=== PATIENT | female | born 1965 | race Caucasian/White ===

== ENCOUNTER → 2017-08-07 | Outpatient (CLI) | payer OTHER ==
--- NOTE | 2017-08-09 07:51 | MM ---
Reason for exam: screening (asymptomatic). Last mammogram was performed 1 year and 3 months ago. History: Family history of breast cancer in maternal aunt at age 40. Benign left breast needle localization of both breasts, October 05, 2010. Cancelled Left Mammotome of the left breast, September 22, 2010. Took hormonal contraceptives for 17 years beginning at age 18. Physical Findings: A clinical breast exam by your physician is recommended on an annual basis and results should be correlated with mammographic findings. MG Screening Mammo w CAD Bilateral CC and MLO view(s) were taken. Prior study comparison: May 13, 2016, bilateral MG screening mammo w CAD. October 17, 2014, bilateral MG screening mammo w CAD. The breast tissue is heterogeneously dense. This may lower the sensitivity of mammography. No suspicious abnormality. ASSESSMENT: Negative, BI-RAD 1 RECOMMENDATION: Routine screening mammogram of both breasts in 1 year.
== END | disposition home or self-care (01) ==
LOC: RADMAMWWP 16:45
PROVIDERS: ATTEND Obstetrics & Gynecology
DX: Z12.31 Encounter for screening mammogram for malignant neoplasm of breast (principal)
CPT/HCPCS: 77067

== ENCOUNTER → 2019-05-22 | Outpatient (CLI) | payer OTHER ==
--- NOTE | 2019-05-23 09:42 | MM ---
Reason for exam: screening (asymptomatic). Last mammogram was performed 1 year and 9 months ago. History: Family history of breast cancer in maternal aunt at age 40. Benign left breast needle localization of both breasts, October 05, 2010. Cancelled Left Mammotome of the left breast, September 22, 2010. Took hormonal contraceptives for 17 years beginning at age 18. Physical Findings: A clinical breast exam by your physician is recommended on an annual basis and results should be correlated with mammographic findings. MG 3D Screening Mammo W/Cad Bilateral CC and MLO view(s) were taken. Prior study comparison: August 07, 2017, bilateral MG screening mammo w CAD. May 13, 2016, bilateral MG screening mammo w CAD. The breast tissue is heterogeneously dense. This may lower the sensitivity of mammography. Upper outer right breast is stable. Stable post operative changes left breast. ASSESSMENT: Benign, BI-RAD 2 RECOMMENDATION: Routine screening mammogram of both breasts in 1 year.
== END | disposition home or self-care (01) ==
LOC: RADMAMWWP 09:41
PROVIDERS: ATTEND Family Medicine
DX: Z12.31 Encounter for screening mammogram for malignant neoplasm of breast (principal)
CPT/HCPCS: 77063; 77067

== ENCOUNTER → 2019-05-24 | Day surgery (SDC) | payer OTHER ==
[2019-05-22 14:50] VITALS: BMI 24.1
[~2019-05-24] MED LIST: LACTATED RINGERS 1,000 ML IV SCH; LIDOCAINE 1% 20 ML VIAL (10MG/ML) FOR IV START INTRADERMA PRN; LIDOCAINE 1% INJ 10MG/ML (20 ML MDV) ONE; PROPOFOL 10 MG/ML 20 ML VIAL IV ONE
[2019-05-24 09:51] VITALS: RESP 16; TEMP 98.3
--- NOTE | 2019-05-24 10:59 | P.PCN ---
Date of Procedure: 05/24/19 Procedure(s) Performed: BRIEF HISTORY: Patient is a 53-year-old pleasant female scheduled for an elective colonoscopy as a part of screening for colorectal neoplasia. PROCEDURE PERFORMED: Colonoscopy. PREOPERATIVE DIAGNOSIS: In for colon cancer. IV sedation per Anesthesia. PROCEDURE: After informed consent was obtained, the patient, was brought into the endoscopy unit. IV sedation was administered by Anesthesia under continuous monitoring. Digital rectal examination was normal. Initially the Olympus CF-160 flexible video colonoscope was then inserted in the rectum, gradually advanced into the cecum without any difficulty. Careful examination was performed as the scope was gradually being withdrawn. Ileocecal valve and the appendiceal orifice were visualized and appeared normal. Prep was excellent. Mucosa of the cecum, ascending colon, transverse colon, descending colon, sigmoid colon, and rectum appeared normal. Scattered sigmoidal diverticulosis seen. Retroflexion was performed in the rectum and no lesions were seen. The patient tolerated the procedure well. IMPRESSION: Normal-appearing colon from rectum to cecum with no evidence of colorectal neoplasia Scattered sigmoidal diverticulosis . RECOMMENDATIONS: Findings of this examination were discussed with the patient as well as a family. She was advised to have a repeat screening colonoscopy in 10 years.
[2019-05-24 11:32] VITALS: BP 128/69; PULSE 66
== END ==
LOC: ORWHC2ENDO 09:34
PROVIDERS: ATTEND Internal Medicine Gastroenterology
DX: Z12.11 Encounter for screening for malignant neoplasm of colon (principal); K57.30 Diverticulosis of large intestine without perforation or abscess without bleeding; Z79.899 Other long term (current) drug therapy; Z87.891 Personal history of nicotine dependence; K58.9 Irritable bowel syndrome, unspecified
CPT/HCPCS: 81025; J2001; J2704; G0121

== ENCOUNTER → 2020-09-30 | Outpatient (CLI) | payer OTHER ==
--- NOTE | 2020-10-02 09:53 | MM ---
Reason for exam: screening (asymptomatic). Last mammogram was performed 1 year and 4 months ago. History: Family history of breast cancer in maternal aunt at age 40. Benign left breast needle localization of both breasts, October 05, 2010. Cancelled Left Mammotome of the left breast, September 22, 2010. Took hormonal contraceptives for 17 years beginning at age 18. Physical Findings: A clinical breast exam by your physician is recommended on an annual basis and results should be correlated with mammographic findings. MG 3D Screening Mammo W/Cad Bilateral CC and MLO view(s) were taken. Prior study comparison: May 22, 2019, bilateral MG 3d screening mammo w/cad. August 07, 2017, bilateral MG screening mammo w CAD. The breast tissue is heterogeneously dense. This may lower the sensitivity of mammography. There is no discrete abnormality. No significant changes when compared with prior studies. ASSESSMENT: Negative, BI-RAD 1 RECOMMENDATION: Routine screening mammogram of both breasts in 1 year.
== END | disposition home or self-care (01) ==
LOC: RADMAMWWP 09:40
PROVIDERS: ATTEND Family Medicine
DX: Z12.31 Encounter for screening mammogram for malignant neoplasm of breast (principal); Z80.3 Family history of malignant neoplasm of breast
CPT/HCPCS: 77063; 77067

== ENCOUNTER 2021-03-04 23:18 | Emergency (ER) | payer OTHER ==
[2021-03-05] MEDS ORDERED: SODIUM CHLORIDE 0.9% 1,000 ML IV STA (01:09)
[2021-03-05] MEDS ORDERED: FAMOTIDINE 20 MG/2 ML VIAL IV STA (01:10)
[2021-03-05] MEDS ORDERED: DICYCLOMINE 10 MG/ML 2 ML AMP IM STA (01:10)
[2021-03-05 01:34] VITALS: RESP 18
[2021-03-05 01:50] LABS: Basophils # (A) 0.1 k/uL (0-0.2); Basophils % (A) 1 %; Eosinophils # (A) 0.1 k/uL (0-0.7); Eosinophils % (A) 1 %; HCT 39.4 % (34.0-46.0); HGB 13.4 gm/dL (11.4-16.0); Hypochromasia Slight; Lymphocytes # (A) 1.5 k/uL (1.0-4.8); Lymphocytes % (A) 14 %; MCH 31.7 pg (25.0-35.0); MCHC 34.1 g/dL (31.0-37.0); MCV 92.9 fL (80.0-100.0); Mean Platelet Volume 8.1; Monocytes # (A) 0.5 k/uL (0-1.0); Monocytes % (A) 5 %; Neutrophils # (A) 8.1 k/uL (1.3-7.7); Neutrophils % (A) 78 %; Platelet Count 211 k/uL (150-450); Poikilocytosis Slight; RBC 4.25 m/uL (3.80-5.40); RDW 14.7 % (11.5-15.5); WBC 10.4 k/uL (3.8-10.6)
[2021-03-05 02:09] LABS: ALT 12 U/L (4-34); AST 27 U/L (14-36); African American GFR (CKD) >90 (>60 ml/min/1.73 sqM); Albumin 4.9 g/dL (3.5-5.0); Alkaline Phosphatase 50 U/L (38-126); Anion Gap 9 mmol/L; Blood Urea Nitrogen 13 mg/dL (7-17); Calcium 9.9 mg/dL (8.4-10.2); Carbon Dioxide 25 mmol/L (22-30); Chloride 104 mmol/L (98-107); Glucose 104 mg/dL (74-99); Lipase 46 U/L (23-300); Non-African American GFR(CKD) >90 (>60 ml/min/1.73 sqM); Potassium 3.9 mmol/L (3.5-5.1); Sodium 138 mmol/L (137-145); Total Bilirubin 0.4 mg/dL (0.2-1.3); Total Protein 8.2 g/dL (6.3-8.2)
--- NOTE | 2021-03-05 03:16 | ED ---
Abdominal Pain HPI - General Chief Complaint: Abdominal Pain Stated Complaint: ABD Pain Time Seen by Provider: 03/05/21 00:23 Source: patient Mode of arrival: ambulatory - History of Present Illness Initial Comments: 55 year-old female patient presents to the emergency department for evaluation of diarrhea and abdominal discomfort and bloating. Patient states that she has history of IBS. States over the last two weeks her symptoms worsened. States she is having multiple episodes of diarrhea daily. States her food goes right through her. States it is watery and oily. She did see a GI specialist who sent a stool sample, she is unsure of the results. She was told she has colitis and that she is not digesting her food. She was started on cholestyramine and hyoscyamine. She started the hyoscyamine yesterday. Does not feel like she is getting relief. She denies any fever or chills. Denies sick contacts or recent use of antibiotics. Denies history of abdominal surgery. Patient denies any recent rash, cough, shortness of breath, chest pain, nausea, vomiting, constipation, back pain, numbness, tingling, dizziness, weakness, hematuria, dysuria, urinary urgency, urinary frequency, headache, visual changes, or any other complaints. - Related Data Home Medications Medication Instructions Recorded Confirmed Calcium Carbonate [Calcium] 600 mg PO DAILY 05/22/19 05/24/19 Loperamide [Imodium] 2 mg PO DAILY PRN 05/22/19 05/24/19 Multivitamins, Thera [Multivitamin 1 tab PO DAILY 05/22/19 05/24/19 (formulary)] Previous Rx's Medication Instructions Recorded Diphenoxylate HCl/Atropine 1 tab PO 5XD PRN 3 Days #15 tab 03/05/21 [Lomotil 2.5-0.025 mg Tablet] Allergies Allergy/AdvReac Type Severity Reaction Status Date / Time sulfamethoxazole Allergy Rash/Hives Verified 03/05/21 00:17 [From Bactrim] trimethoprim [From Bactrim] Allergy Rash/Hives Verified 03/05/21 00:17 Review of Systems ROS Statement: Those systems with pertinent positive or pertinent negative responses have been documented in the HPI. ROS Other: All systems not noted in ROS Statement are negative. Past Medical History Additional Past Medical History / Comment(s): colitis History of Any Multi-Drug Resistant Organisms: None Reported Additional Past Surgical History / Comment(s): varicose treated Past Psychological History: No Psychological Hx Reported Smoking Status: Never smoker Past Alcohol Use History: None Reported Past Drug Use History: None Reported General Exam General appearance: alert, in no apparent distress, other (This is a well developed, well nourished adult female patient. Vital signs upon presentation are temperature 97.7F, pulse 83, respirations 19, blood pressure 141/70, pulse ox 100% on room air.) ENT exam: Present: normal exam, normal oropharynx, mucous membranes moist Respiratory exam: Present: normal lung sounds bilaterally. Absent: respiratory distress, wheezes, rales, rhonchi, stridor Cardiovascular Exam: Present: regular rate, normal rhythm, normal heart sounds. Absent: systolic murmur, diastolic murmur, rubs, gallop, clicks GI/Abdominal exam: Present: soft, normal bowel sounds. Absent: distended, tenderness, guarding, rebound, rigid Neurological exam: Present: alert, oriented X3, CN II-XII intact Psychiatric exam: Present: normal affect, normal mood Skin exam: Present: warm, dry, intact, normal color. Absent: rash Course Vital Signs 03/05/21 03/05/21 03/05/21 00:12 01:33 03:31 Temperature 97.7 F Pulse Rate 83 81 78 Respiratory 19 18 18 Rate Blood Pressure 141/70 145/79 143/82 O2 Sat by Pulse 100 100 97 Oximetry Medical Decision Making - Medical Decision Making 55-year-old female patient presents to the emergency department today for evaluation of diarrhea. Physical examination revealed soft nontender abdomen. She is afebrile normal vital signs. Labs reviewed and were unremarkable. States negative for C. diff. I did discuss findings and results with her. She'll be discharged home with prescription for Lomotil. She is instructed to continue her hyoscyamine. She is instructed to consider taking [id number] probiotic. She is instructed to follow-up the primary care physician for recheck in 1-2 days. Return parameters were discussed in detail. She verbalizes understanding and agrees with this plan. Case discussed with my attending Dr. Odonnell. - Lab Data Result diagrams: 03/05/21 01:17 03/05/21 01:17 Lab Results 03/05/21 03/05/21 03/05/21 Range/Units 01:17 01:17 01:17 WBC 10.4 (3.8-10.6) k/uL RBC 4.25 (3.80-5.40) m/uL Hgb 13.4 (11.4-16.0) gm/dL Hct 39.4 (34.0-46.0) % MCV 92.9 (80.0-100.0) fL MCH 31.7 (25.0-35.0) pg MCHC 34.1 (31.0-37.0) g/dL RDW 14.7 (11.5-15.5) % Plt Count 211 (150-450) k/uL MPV 8.1 Neutrophils % 78 % Lymphocytes % 14 % Monocytes % 5 % Eosinophils % 1 % Basophils % 1 % Neutrophils # 8.1 H (1.3-7.7) k/uL Lymphocytes # 1.5 (1.0-4.8) k/uL Monocytes # 0.5 (0-1.0) k/uL Eosinophils # 0.1 (0-0.7) k/uL Basophils # 0.1 (0-0.2) k/uL Hypochromasia Slight Poikilocytosis Slight Sodium 138 (137-145) mmol/L Potassium 3.9 (3.5-5.1) mmol/L Chloride 104 (98-107) mmol/L Carbon Dioxide 25 (22-30) mmol/L Anion Gap 9 mmol/L BUN 13 (7-17) mg/dL Creatinine 0.63 (0.52-1.04) mg/dL Est GFR (CKD-EPI)AfAm >90 (>60 ml/min/1.73 sqM) Est GFR (CKD-EPI)NonAf >90 (>60 ml/min/1.73 sqM) Glucose 104 H (74-99) mg/dL Plasma Lactic Acid Meño (0.7-2.0) mmol/L Calcium 9.9 (8.4-10.2) mg/dL Total Bilirubin 0.4 (0.2-1.3) mg/dL AST 27 (14-36) U/L ALT 12 (4-34) U/L Alkaline Phosphatase 50 (38-126) U/L Total Protein 8.2 (6.3-8.2) g/dL Albumin 4.9 (3.5-5.0) g/dL Lipase 46 (23-300) U/L C. difficile (EIA) Intrp Negative (Negative) 03/05/21 Range/Units 02:32 WBC (3.8-10.6) k/uL RBC (3.80-5.40) m/uL Hgb (11.4-16.0) gm/dL Hct (34.0-46.0) % MCV (80.0-100.0) fL MCH (25.0-35.0) pg MCHC (31.0-37.0) g/dL RDW (11.5-15.5) % Plt Count (150-450) k/uL MPV Neutrophils % % Lymphocytes % % Monocytes % % Eosinophils % % Basophils % % Neutrophils # (1.3-7.7) k/uL Lymphocytes # (1.0-4.8) k/uL Monocytes # (0-1.0) k/uL Eosinophils # (0-0.7) k/uL Basophils # (0-0.2) k/uL Hypochromasia Poikilocytosis Sodium (137-145) mmol/L Potassium (3.5-5.1) mmol/L Chloride (98-107) mmol/L Carbon Dioxide (22-30) mmol/L Anion Gap mmol/L BUN (7-17) mg/dL Creatinine (0.52-1.04) mg/dL Est GFR (CKD-EPI)AfAm (>60 ml/min/1.73 sqM) Est GFR (CKD-EPI)NonAf (>60 ml/min/1.73 sqM) Glucose (74-99) mg/dL Plasma Lactic Acid Meño 0.5 L (0.7-2.0) mmol/L Calcium (8.4-10.2) mg/dL Total Bilirubin (0.2-1.3) mg/dL AST (14-36) U/L ALT (4-34) U/L Alkaline Phosphatase (38-126) U/L Total Protein (6.3-8.2) g/dL Albumin (3.5-5.0) g/dL Lipase (23-300) U/L C. difficile (EIA) Intrp (Negative) Disposition Clinical Impression: Diarrhea Disposition: HOME SELF-CARE Condition: Good Instructions (If sedation given, give patient instructions): Acute Diarrhea (ED) Additional Instructions: Increase fluids. Take medications as directed. Consider using an [id number] probiotic daily. Follow-up with her GI specialist and her primary care physician as soon as possible. Return to the emergency department for any new, worsening, or concerning symptoms. Prescriptions: Diphenoxylate HCl/Atropine [Lomotil 2.5-0.025 mg Tablet] 1 tab PO 5XD PRN 3 Days #15 tab PRN Reason: Diarrhea Is patient prescribed a controlled substance at d/c from ED?: No Referrals: Katya Berry MD [Primary Care Provider] - 1-2 days Time of Disposition: 04:00
[2021-03-05] MEDS ORDERED: DIPHENOX-ATROP STARTER PACK 8 TAB BTL PO STA (03:59)
[2021-03-05 04:17] VITALS: BP 131/77; PULSE 89; TEMP 97.2
[2021-03-05 04:24] LABS: Appearance,Urine Clear (Clear); Bacteria,Urine Rare /hpf; Bilirubin,Urine Negative (Negative); Blood,Urine Trace (Negative); Color,Urine Light Yellow; Glucose,Urine (UA) Negative (Negative); Ketones,Urine Negative (Negative); Leukocyte Esterase,Urine Negative (Negative); Mucus,Urine Rare /hpf; Nitrite,Urine Negative (Negative); PH, Urine 5.5 (5.0-8.0); Protein,Urine Negative (Negative); RBC,Urine 1 /hpf (0-5); Specific Gravity,Urine 1.008 (1.001-1.035); Squamous Epithelial Cell,Urine 1 /hpf (0-4); Urobilinogen,Urine <2.0 mg/dL (<2.0); WBC,Urine 1 /hpf (0-5)
== END 2021-03-05 04:15 | disposition home or self-care (01) ==
LOC: EC 23:18
DX: R19.7 Diarrhea, unspecified (principal); Z88.1 Allergy status to other antibiotic agents; Z88.2 Allergy status to sulfonamides
CPT/HCPCS: 99284; 96374; 96361; 96372; 36415; 80053; 83605; 83690; 85025; 81001; 87324; J0500

== ENCOUNTER → 2024-08-28 | Outpatient (CLI) | payer OTHER ==
--- NOTE | 2024-08-28 14:36 | MM ---
Reason for Exam: Screening (asymptomatic). Last mammogram was performed 3 year(s) and 11 month(s) ago. Patient History: Menarche at age 15. First Full-Term at age 22. Postmenopausal. Hormonal Contraceptives for 17 years from age 18 until age 35. 10/05/2010, Bilateral Benign Excisional Biopsy. 09/22/2010, Cancelled Left Mammotome on the left side. Maternal aunt had breast cancer, age 40. Risk Values: Sariah 5 year model risk: 1.3%. NCI Lifetime model risk: 8.5%. Prior Study Comparison: 08/07/2017 Bilateral Screening Mammogram, [facility]. 05/22/2019 Bilateral Screening Mammogram, [facility]. 09/30/2020 Bilateral Screening Mammogram, [facility]. Tissue Density: There are scattered areas of fibroglandular density. Findings: Analyzed By CAD. Left breast surgical clips. Right breast: There is no suspicious group of microcalcifications or new suspicious mass. Left breast: There is no suspicious group of microcalcifications or new suspicious mass. Overall Assessment: Negative, BI-RAD 1 Management: Screening Mammogram of both breasts in [address] [facility] will attempt to contact patient to return for supplemental views and ultrasound if indicated. Patient should continue monthly self-breast exams. A clinical breast exam by your physician is recommended on an annual basis. This exam should not preclude additional follow-up of suspicious palpable abnormalities. Note on Sariah scores and lifetime risk: 1. A Sariah score greater than 3% is considered moderate risk. If this is the case, consider specialist referral to assess eligibility for a risk reducing agent. 2. If overall lifetime risk for the development of breast cancer is 20% or higher, the patient may qualify for future screening with alternating mammogram and breast MRI. [facility], , 08/28/2024 2:33 PM. Electronically signed and approved by: Jesus Villafana DO
== END | disposition home or self-care (01) ==
LOC: RADMAMWWP 14:21
PROVIDERS: ATTEND Family Medicine
DX: Z12.31 Encounter for screening mammogram for malignant neoplasm of breast (principal); R92.323 Mammographic fibroglandular density, bilateral breasts; Z78.0 Asymptomatic menopausal state; Z80.3 Family history of malignant neoplasm of breast
CPT/HCPCS: 77063; 77067